=== PATIENT | male | born 1950 | race Hispanic/Latino ===

== ENCOUNTER 2016-08-14 06:47 | Observation (INO) | payer BC ==
[2016-08-14] MEDS ORDERED: Aspirin 325 mg EC Tablets PO STA (07:47)
[2016-08-14 08:16] LABS: BASO # 0.1 K/uL (0.0-0.2); BASO % 1.2 % (0.0-2.0); EOS # 0.1 K/uL (0.0-0.7); HEMATOCRIT 45.1 % (35.0-51.0); LYMPH # 2.2 K/uL (1.0-4.3); LYMPH % 25.7 % (20.0-40.0); MEAN CELL VOLUME 87.3 fL (80.0-94.0); MEAN CORPUSCULAR HEMOGLOBIN 30.1 pg (27.0-31.0); MEAN CORPUSCULAR HGB CONC 34.5 g/dL (33.0-37.0); MEAN PLATELET VOLUME 7.7 fL (7.2-11.7); MONO # 0.8 K/uL (0.0-0.8); MONO % 8.9 % (0.0-10.0); RED CELL DISTRIBUTION WIDTH 14.1 % (11.5-14.5); WHITE BLOOD COUNT 8.7 K/uL (4.8-10.8)
--- NOTE | 2016-08-14 08:21 | C.PDOC ---
History Of Present Illness Patient is a 66-year-old male, PMHx includes Hypertension, GERD and Sciatica, presents to the emergency department with complaints of chest pain. Patient states yesterday at 10 PM he had left-sided chest pain, that was associated with significant diaphoresis at rest. Pain non-radiating, and lasted about five minutes. States he is unable to describe the pain. Patient is a smoker. Denies any leg swelling, arm pain, numbness/weakness, fevers, shortness of breath, dizziness, neck/jaw pain, or any other associated symptoms. No other complaints at this time. Of note, patient is pending appointment with mechanics handyman today ( Dr. Sanchez). PMD Richard Souza MD. Thread [employer] Dr Sanchez Time Seen by Provider: 08/14/16 07:37 Chief Complaint (Nursing): Shortness Of Breath History Per: Patient History/Exam Limitations: no limitations Onset/Duration Of Symptoms: Hrs Current Symptoms Are (Timing): Still Present Past Medical History Reviewed: Historical Data, Nursing Documentation, Vital Signs Vital Signs: Last Vital Signs Temp 98.1 F 08/14/16 15:29 Pulse 51 L 08/14/16 15:29 Resp 20 08/14/16 15:29 BP 134/85 08/14/16 15:29 Pulse Ox 97 08/14/16 15:29 - Medical History PMH: Back Problems, HTN (takes hctz and Telmisartan? dosage) Family History: States: Diabetes, Hypertension - Social History Hx Tobacco Use: Yes Hx Alcohol Use: No Hx Substance Use: No - Immunization History Hx Tetanus Toxoid Vaccination: Yes Hx Influenza Vaccination: Yes Hx Pneumococcal Vaccination: Yes Review Of Systems Except As Marked, All Systems Reviewed And Found Negative. Constitutional: Negative for: Fever, Chills Cardiovascular: Positive for: Chest Pain, Other (Diaphoresis.) Respiratory: Negative for: Shortness of Breath Gastrointestinal: Negative for: Nausea, Vomiting Musculoskeletal: Negative for: Neck Pain, Back Pain Neurological: Negative for: Weakness, Numbness, Headache, Dizziness Physical Exam - Physical Exam Appears: Non-toxic, No Acute Distress Skin: Warm, Dry, No Rash Head: Atraumatic, Normacephalic Eye(s): bilateral: Normal Inspection, PERRL Nose: Normal Oral Mucosa: Moist Lips: Normal Appearing Throat: Normal Neck: Normal ROM Lymphatic: Deferred Chest: Symmetrical Cardiovascular: Rhythm Regular, No Edema, No Murmur Respiratory: Normal Breath Sounds, No Accessory Muscle Use Gastrointestinal/Abdominal: Normal Exam, Bowel Sounds, Soft, No Tenderness Extremity: Normal ROM, No Pedal Edema Neurological/Psych: Oriented x3, Normal Speech ED Course And Treatment - Laboratory Results Result Diagrams: 08/14/16 08:12 08/14/16 08:12 O2 Sat by Pulse Oximetry: 97 (on RA) Medical Decision Making Medical Decision Making: Impression: 66y/o M comes in w/ chest pain and diaphoresis. Will check labs, EKG and CXR. Diff Dx (includes but not limited to) ACS vs Unstable Angina Plan: * EKG * BNP, CK-MB, CMP, CPK, Trop I * CBC, INR * Chest X-Ray * Aspirin * O2 mask * Reassess and Disposition EKG Rate 61bpm Rhythm NSR Interpret No acute ST/T wave changes. Normal [place] Progress: Patient with high risk factors (age, smoker, HTN) and pt with chest pain assoc with significant diaphoresis. Case d/w Dr. Sanchez--recommends hospitalization under the service of Dr. Bansal. Disposition - Disposition Disposition: HOSPITALIZED Disposition Time: 09:35 Condition: FAIR - Clinical Impression Clinical Impression: Chest pain at rest - Scribe Statement The provider has reviewed the documentation as recorded by the Scribe (Fidelia Brooks) All medical record entries made by the Scribe were at my direction and personally dictated by me. I have reviewed the chart and agree that the record accurately reflects my personal performance of the history, physical exam, medical decision making, and the department course for this patient. I have also personally directed, reviewed, and agree with the discharge instructions and disposition. Decision To Admit - Pt Status Changed To: Hospital Disposition Of: Observation - . Bed Request Type: Telemetry Admitting Physician: Eric Bansal Patient Diagnosis: Chest pain at rest
[2016-08-14 08:25] LABS: INR 1.2
[2016-08-14 08:26] LABS: CHLORIDE 103 mmol/L (98-107); SODIUM 139 mmol/L (132-148)
[2016-08-14 08:27] LABS: POTASSIUM 3.2 mmol/L (3.6-5.2)
[2016-08-14 08:29] LABS: ALB/GLOB RATIO 1.2 (1.0-2.1); ALKALINE PHOSPHATASE 101 U/L (38-126); ALT/SGPT 24 U/L (21-72); AST/SGOT 24 U/L (17-59); BILIRUBIN,TOTAL 0.7 mg/dL (0.2-1.3); BLOOD UREA NITROGEN 17 mg/dL (9-20); CARBON DIOXIDE 23 mmol/L (22-30); GFR AFRICAN-AMERICAN > 60; GLUCOSE,RANDOM 128 mg/dL (75-110); TOTAL PROTEIN 7.4 g/dL (6.3-8.3)
[2016-08-14 08:30] LABS: CALCIUM 9.1 mg/dl (8.6-10.4)
[2016-08-14] MEDS ORDERED: Potassium Chloride 20 mEq/15 ml LIQ UD PO STA (09:11)
[2016-08-14] MEDS ORDERED: Potassium Chloride 20 mEq/15 ml LIQ UD ONE (09:16)
--- NOTE | 2016-08-14 09:50 | RAD ---
PROCEDURE: CHEST RADIOGRAPH, 1 VIEW HISTORY: chest pain COMPARISON: None available. FINDINGS: LUNGS: Mild venous congestion. Patchy bibasilar airspace opacities. Biapical pleural thickening with upper lobe granulomatous changes. PLEURA: As above. CARDIOVASCULAR: Normal. OSSEOUS STRUCTURES: Probable calcific tendinopathy of the right proximal humerus. VISUALIZED UPPER ABDOMEN: Normal. OTHER FINDINGS: None. IMPRESSION: Mild venous congestion. Patchy bibasilar airspace opacities. Biapical pleural thickening with upper lobe granulomatous changes.
--- NOTE | 2016-08-14 18:13 | CT ---
PROCEDURE: CT HEAD WITHOUT CONTRAST. HISTORY: dysarthria COMPARISON: None available. TECHNIQUE: Axial computed tomography images were obtained through the head/brain without intravenous contrast. Radiation dose: Total exam DLP = 920.21 mGy-cm. This CT exam was performed using one or more of the following dose reduction techniques: Automated exposure control, adjustment of the mA and/or kV according to patient size, and/or use of iterative reconstruction technique. FINDINGS: HEMORRHAGE: No intracranial hemorrhage. BRAIN: No mass effect or edema. Mild periventricular white matter lucency consistent with chronic microvascular ischemic change. VENTRICLES: Unremarkable. No hydrocephalus. CALVARIUM: Unremarkable. PARANASAL SINUSES: Chronic ethmoid sinusitis. MASTOID AIR CELLS: Unremarkable as visualized. No inflammatory changes. OTHER FINDINGS: None. IMPRESSION: No intracranial mass, hemorrhage or evidence of acute infarct. Mild chronic white matter ischemic change. Chronic ethmoid sinusitis.
--- NOTE | 2016-08-14 18:35 | CT ---
PROCEDURE: CT Chest without contrast HISTORY: nodules COMPARISON: None. TECHNIQUE: Contiguous axial images were obtained through the chest without intravenous contrast enhancement. Sagittal and coronal reconstructions were performed. Radiation dose (DLP): 406.67 mGy-cm. This CT exam was performed using one or more of the following dose reduction techniques: Automated exposure control, adjustment of the mA and/or kV according to patient size, and/or use of iterative reconstruction technique. FINDINGS: LUNGS: No pulmonary infiltrate. Minimal pleural-based linear scar in the left lower lobe, posteriorly. No significant pulmonary mass identified. There is a 2 mm noncalcified right upper lobe nodule on series 3, image 24. No follow-up evaluation is recommended. No other pulmonary mass identified. MEDIASTINUM: Unremarkable thoracic aorta. No aneurysm. Normal sized heart. Main pulmonary artery unremarkable. No vascular congestion. No lymphadenopathy. PLEURA: Curvilinear pleural thickening is seen along the right lateral aspect of a right epicardial fat pad. This has a somewhat nodular appearance in the axial images but this is artifactual. No pleural effusion. BONES: There is mild compression deformity of the T9 vertebra, age indeterminate. There is an old healed fracture of the right 9th rib, posteriorly. UPPER ABDOMEN: Grossly unremarkable. OTHER FINDINGS: None. IMPRESSION: 2 mm right upper lobe pulmonary nodule. No other mass identified. Nonspecific focal curvilinear pleural thickening along the right lateral aspect of a right epicardial fat pad. No other significant abnormality.
--- NOTE | 2016-08-14 19:56 | CARD ---
APPROVED REPORT EKG Measurement Heart [id number] <Conclusion> Normal sinus rhythm Normal ECG
--- NOTE | 2016-08-14 22:56 | CP.PCM.CON ---
History of Present Illness - History of Present Illness History of Present Illness: Patient seen and evaluated Exertional angina and claudication check ECHO, Carotid and Stress test Past Patient History - Past Medical History & Family History Past Medical History?: Yes - Past Social History Smoking Status: Light Smoker < 10 Cigarettes Daily - CARDIAC Hx Hypertension: Yes (takes hctz and Telmisartan? dosage) - PULMONARY Hx Respiratory Disorders: No - NEUROLOGICAL Hx Neurological Disorder: No - HEENT Hx HEENT Problems: No - RENAL Hx Chronic Kidney Disease: No - ENDOCRINE/METABOLIC Hx Endocrine Disorders: No - HEMATOLOGICAL/ONCOLOGICAL Hx Blood Disorders: No - INTEGUMENTARY Hx Dermatological Problems: No - MUSCULOSKELETAL/RHEUMATOLOGICAL Hx Musculoskeletal Disorders: No Hx Falls: No - GASTROINTESTINAL Hx Gastrointestinal Disorders: Yes Hx Gastroesophageal Reflux: Yes (Pantoprazole ? dosage.) - GENITOURINARY/GYNECOLOGICAL Hx Genitourinary Disorders: No - PSYCHIATRIC Hx Substance Use: No - SURGICAL HISTORY Hx Surgeries: Yes Other/Comment: abdominal sx 7yrs ago- Pt cannot recall the type of sx. - ANESTHESIA Hx Anesthesia: Yes Hx Anesthesia Reactions: No Meds Allergies/Adverse Reactions: Allergies Allergy/AdvReac Type Severity Reaction Status Date / Time iodine Allergy Verified 08/14/16 07:02 - Medications Medications: Current Medications Aspirin (Ecotrin) 325 mg PO DAILY [facility] Losartan Potassium (Cozaar) 25 mg PO DAILY [facility] Metoprolol Succinate (Toprol Xl) 25 mg PO DAILY [facility] Nicotine (Nicoderm Cq) 1 patch TD DAILY [facility] Last Admin: 08/14/16 18:34 Dose: 1 patch Results - Vital Signs Recent Vital Signs: Last Vital Signs Temp 98.1 F 08/14/16 15:29 Pulse 51 L 08/14/16 15:29 Resp 20 08/14/16 15:29 BP 134/85 08/14/16 15:29 Pulse Ox 97 08/14/16 15:41 - Labs Result Diagrams: 08/14/16 08:12 08/14/16 08:12 Labs: Laboratory Results - last 24 hr 08/14/16 14:08 Total Creatine Kinase 143 CK-MB (Mass) 1.93 Troponin I, Quant < 0.0120
[2016-08-15] MEDS ORDERED: Aminophylline 25 mg/ml Inj ONE (07:58)
--- NOTE | 2016-08-15 11:28 | CARD ---
APPROVED REPORT EXAM: Two-dimensional and M-mode echocardiogram with Doppler and color Doppler. Other Information Quality : GoodRhythm : NSR INDICATION Chest Pain RISK FACTORS Hypertension M-Mode DIMENSIONS RVDd1.77 (2.1-3.2cm)Left Atrium (MM)3.84 (2.5-4.0cm) IVSd1.15 (0.7-1.1cm)Aortic Root3.28 (2.2-3.7cm) LVDd5.14 (4.0-5.6cm)Aortic Cusp Exc.1.62 (1.5-2.0cm) PWd1.18 (0.7-1.1cm)FS (%) 41 % LVDs3.02 (2.0-3.8cm)LVEF (%)72 (>50%) Mitral Valve MV E Cweznqma88.6cm/sMV A Shrgdnwp69.5cm/sE/A ratio1.1 TDI E/Lateral E'0.0E/Medial E'0.0 Tricuspid Valve TR Peak Nglrvwnm561kf/sTR Peak Gr.47vuJwEIEY68ljIi LEFT VENTRICLE The left ventricle is normal size. There is mild concentric left ventricular hypertrophy. Left ventricle systolic function is normal. The Ejection Fraction is >70%. There is normal LV segmental wall motion. Transmitral Doppler flow pattern is Grade I-abnormal relaxation pattern. There is no ventricular septal defect visualized. RIGHT VENTRICLE The right ventricle is normal size. The right ventricular systolic function is normal. ATRIA The left atrium size is normal. The right atrium size is normal. AORTIC VALVE The aortic valve is mildly sclerotic. The aortic valve is tri-cuspid. No aortic regurgitation is present. There is no aortic valvular stenosis. MITRAL VALVE The mitral valve is normal in structure. There is no evidence of mitral valve prolapse. There is no mitral valve regurgitation noted. TRICUSPID VALVE The tricuspid valve is normal in structure. There is trace tricuspid regurgitation. Right ventricular systolic pressure is estimated at less than 30 mmHg. There is no pulmonary hypertension. PULMONIC VALVE The pulmonic valve is not well visualized. There is trace pulmonic valvular regurgitation. GREAT VESSELS The IVC is normal in size and collapses >50% with inspiration. PERICARDIAL EFFUSION There is no pericardial effusion. <Conclusion> Left ventricle systolic function is normal. The Ejection Fraction is >70%. Transmitral Doppler flow pattern is Grade I-abnormal relaxation pattern.
[2016-08-15] MEDS: Aspirin 325 mg EC Tablets PO SCH (13:26)
[2016-08-15] MEDS: Metoprolol Succinate 25 mg XL Tab PO SCH (13:31)
--- NOTE | 2016-08-15 17:21 | CARD ---
APPROVED REPORT Protocol: PHARMACOLOGICAL STRESS Test Type: LEXISCAN Test Indications: CHEST PAIN,R/O ACS Medications: LIST SCAN Medical History: CHEST PAIN,R/O ACS Target HR: 155 bpm Resting ECG: normal Resting Heart Rate: 54 bpm Resting Blood Pressure: 150/80mmHg submaximum (85%): 132 bpm TEST SUMMARY [id number]/80.0. INFUSIONDOSE 100:[id number]/80.0. [id number]/68.0. PROCEDURE Pharmacologic stress testing was performed using 0.4mg per 5ml of regadenoson given intravenously over 7-10 seconds. POST EXERCISE Reason for Termination: Lexiscan protocol completed Target HR: No Max HR: 53 bpm 59% of Maximum Predicted HR: 155 bpm Exercise duration: 00:30 min:sec, 0 Stage Exercise capacity: 1.0METs Max Blood Pressure: 150/80mmHg Blood Pressure response to exercise: normal resting BP - appropriate response Heart Rate response to exercise: appropriate Chest Pain: No, none Angina index: 0 Arrhythmia: No, none ST Change: No, none Deviation: 0 mm INTERPRETATION Stress EKG Conclusion: Nuclear report to follow EXAM: Myocardial Perfusion REST/STRESS Imaging Protocol The imaging protocol used to acquire images was Rest Tc-99m/stress Tc-99m 1 day Rest Spect myocardial perfusion imaging was performed in supine position 41 minutes following the injection of 13 mCi of Tc-99 Myoview. Gated Stress Spect was performed 40 minutes after intravenous 31.5 mCi Tc-99 Myoview injection. The images were gated to evaluate regional wall motion and calculate ventricular ejection fraction.Images were reconstructed using backfilter projection method in short horizontal and verticle long axis. Spect slices were generated. RESTING DATA EDV98.62xlYI2.70L/min ESV30.00mlMyocardial Hdni130.00g Av. Heart Rate54.00bpm EF69.00% STRESS DATA EDV94.92qpQN9.60L/min ESV28.00mlMyocardial Lylq358.00g EF70.00% Regional WT score at stress:0.00 Regional WM score at stress:0.00 Summed WT score at stress:10.00 Av. Heart Rate55.00bpmSummed WM score at stress:2.00 LV Perf. Quant 17 Seg. SSS0.00 17 Seg. SRS0.00 17 Seg. SDS0.00 Stress Defect Extent (% LAD)0.00Rest Defect Extent (% LAD)0.00Rev. Defect Extent (% LAD)0.00 Stress Defect Extent (% LCX)0.00Rest Defect Extent (% LCX)5.00Rev. Defect Extent (% LCX)0.00 Stress Defect Extent (% RCA)0.00Rest Defect Extent (% RCA)0.00Rev. Defect Extent (% RCA)0.00 Stress Defect Extent (% SUNIL)0.00Rest Defect Extent (% SUNIL)0.90Rev. Defect Extent (% SUNIL)0.00 Other Information Quality:Good IMPRESSION Normal Myocardial Perfusion exercise stress study Left Ventricle LV Function:Left ventricle systolic function is normal. The Ejection Fraction is >55%. Metabolism/Perfusion There are no perfusion/metabolism defects. Conclusion 1. Normal Lexiscan Nuclear stress test
[2016-08-15 17:49] LABS: BASO # 0.1 K/uL (0.0-0.2); BASO % 0.6 % (0.0-2.0); EOS # 0.1 K/uL (0.0-0.7); EOS % 1.6 % (0.0-4.0); HEMATOCRIT 45.2 % (35.0-51.0); LYMPH # 3.1 K/uL (1.0-4.3); MEAN CELL VOLUME 87.6 fL (80.0-94.0); MEAN CORPUSCULAR HEMOGLOBIN 29.9 pg (27.0-31.0); MEAN CORPUSCULAR HGB CONC 34.1 g/dL (33.0-37.0); MONO # 0.7 K/uL (0.0-0.8); NRBC % 0.1 % (0.0-2.0); RED CELL DISTRIBUTION WIDTH 13.5 % (11.5-14.5); WHITE BLOOD COUNT 8.6 K/uL (4.8-10.8)
[2016-08-15 17:57] LABS: CHLORIDE 103 mmol/L (98-107); SODIUM 140 mmol/L (132-148)
[2016-08-15 17:58] LABS: POTASSIUM 3.7 mmol/L (3.6-5.2)
[2016-08-15 18:00] LABS: ALB/GLOB RATIO 1.1 (1.0-2.1); ALKALINE PHOSPHATASE 97 U/L (38-126); AST/SGOT 23 U/L (17-59); BILIRUBIN,TOTAL 0.8 mg/dL (0.2-1.3); BLOOD UREA NITROGEN 13 mg/dL (9-20); CALCIUM 9.1 mg/dl (8.6-10.4); CARBON DIOXIDE 28 mmol/L (22-30); GFR AFRICAN-AMERICAN > 60; GLUCOSE,RANDOM 100 mg/dL (75-110); TOTAL PROTEIN 7.1 g/dL (6.3-8.3)
[2016-08-15 18:01] LABS: ALT/SGPT 25 U/L (21-72)
[2016-08-15 18:49] VITALS: RESP 20
--- NOTE | 2016-08-15 21:38 | CP.PCM.PN ---
Subjective - Date & Time of Evaluation Date of Evaluation: 08/15/16 Time of Evaluation: 18:10 - Subjective Subjective: Patient had several investigations done today Stress test: Normal ECHO: Normal EF DELLA/PVR: Mild PAD Recommend medcal mgt with ASA 81, Statins Objective - Vital Signs/Intake and Output Vital Signs (last 24 hours): Temp Pulse Resp BP Pulse Ox 98.0 F 60 20 145/73 97 08/15/16 15:00 08/15/16 15:00 08/15/16 15:00 08/15/16 15:00 08/15/16 15:00 Intake and Output: 08/15/16 08/16/16 18:59 06:59 Intake Total 240 Balance 240 - Medications Medications: Current Medications Aspirin (Ecotrin) 325 mg PO DAILY [facility] Last Admin: 08/15/16 13:26 Dose: 325 mg Heparin Sodium (Porcine) (Heparin) 5,000 units SC Q12 [facility] Last Admin: 08/15/16 13:27 Dose: 5,000 units Losartan Potassium (Cozaar) 50 mg PO DAILY [facility] Last Admin: 08/15/16 13:48 Dose: 50 mg Metoprolol Succinate (Toprol Xl) 25 mg PO DAILY [facility] Last Admin: 08/15/16 13:31 Dose: Not Given Nicotine (Nicoderm Cq) 1 patch TD DAILY [facility] Last Admin: 08/15/16 13:27 Dose: 1 patch - Labs Labs: 08/15/16 17:37 08/15/16 17:37 PT 13.4 SECONDS (9.7-12.2) H 08/14/16 08:12 INR 1.2 08/14/16 08:12
[2016-08-16] MEDS: Aspirin 325 mg EC Tablets PO SCH (09:49)
[2016-08-16] MEDS: Metoprolol Succinate 25 mg XL Tab PO SCH (09:49)
--- NOTE | 2016-08-16 10:50 | VASCLAB ---
STUDY DESCRIPTION: HISTORY: pvd smoker and pain PRIORS: None. TECHNIQUE: Pulse volume recording waveforms and segmental pressures of bilateral lower extremities at multiple levels were obtained. Ankle Brachial Indices (ABIs) were calculated. Report prepared by MANAV Costa, RVT RIGHT LOWER EXTREMITY: * Brachial artery: Pressure - 154 mmHg. * High thigh: Pressure - 192 mmHg: Ratio - 1.25: PVR waveform - Pulsatile * Low thigh: Pressure - 186 mmHg: Ratio - 1.21 PVR waveform: Pulsatile * Calf: Pressure - 165 mmHg: Ratio - 1.07 PVR waveform: Pulsatile * Posterior tibial Artery: Pressure - 157 mmHg: Ratio - 1.02 PVR waveform: Pulsatile * Dorsalis pedis Artery: Pressure - 173 mmHg: Ratio - 1.12 PVR waveform: Pulsatile * Great toe: Pressure - mmHg: Ratio - PVR waveform: Ankle brachial index (DELLA): 1.12 LEFT LOWER EXTREMITY: * Brachial artery: Pressure - 154 mmHg. * High thigh: Pressure - 185 mmHg: Ratio - 1.20: PVR waveform - Pulsatile * Low thigh: Pressure - 188 mmHg: Ratio - 1.22 PVR waveform: Pulsatile * Calf: Pressure - 161 mmHg: Ratio - 1.05 PVR waveform: Pulsatile * Posterior tibial Artery: Pressure - 167 mmHg: Ratio - 1.08 PVR waveform: Pulsatile * Dorsalis pedis Artery: Pressure - 163 mmHg: Ratio - 1.06 PVR waveform: Pulsatile * Great toe: Pressure - mmHg: Ratio - PVR waveform: Ankle brachial index (DELLA): 1.08 OTHER FINDINGS: Right: Left: IMPRESSION: Right: There was no evidence of hemodynamically significant arterial insufficiency in the right lower extremity. Left: There was no evidence of hemodynamically significant arterial insufficiency in the left lower extremity.
--- NOTE | 2016-08-16 11:04 | VASCLAB ---
PROCEDURE: HISTORY: dysarthria COMPARISON: None available. TECHNIQUE: Grayscale and duplex Doppler evaluation of the cervical carotid and vertebral arteries were performed. The common carotid, carotid bifurcations and cervical Internal Carotid Artery (ICA) and proximal External Carotid Artery (ECA) were evaluated. The vertebral arteries were evaluated for gross patency and flow direction. Report prepared by Luis Sanchez, BS, RVT FINDINGS: RIGHT CAROTID ARTERIES: 1. Common Carotid Artery: No significant focal plaque formation of the right common carotid artery. Maximum Peak Systolic velocity: 70 cm/sec: End-diastolic velocity 10 cm/sec. 2. Carotid Bifurcation: Minimal homogeneous plaque formation. Maximum Peak Systolic velocity: 51 cm/sec: End-diastolic velocity 8 cm/sec. 3. Internal Carotid Artery: Minimal homogeneous plaque formation. 3.1. Proximal Segment: Peak systolic velocity 87 cm/sec: End-diastolic velocity 21 cm/sec - % stenosis 0-15% 3.2. Middle Segment: Peak systolic velocity 75 cm/sec: End-diastolic velocity 18 cm/sec - % stenosis 0-15% 3.3. Distal Segment: Peak systolic velocity 75 cm/sec: End-diastolic velocity 24 cm/sec - % stenosis 0-15% 4. External Carotid Artery: No significant focal plaque formation. Peak systolic velocity 99 cm/sec 5. ICA/CCA Ratio: 1.3 LEFT CAROTID ARTERIES: 1. Common Carotid Artery: No significant focal plaque formation of the left common carotid artery. Mild intimal hyperplasia. Maximum Peak Systolic velocity: 53 cm/sec: End-diastolic velocity 9 cm/sec. 2. Carotid Bifurcation: Minimal homogeneous plaque formation. Maximum Peak Systolic velocity: 42 cm/sec: End-diastolic velocity 7 cm/sec. 3. Internal Carotid Artery: Minimal homogeneous plaque formation. 3.1. Proximal Segment: Peak systolic velocity 88 cm/sec: End-diastolic velocity 24 cm/sec - % stenosis 0-15% 3.2. Middle Segment: Peak systolic velocity 117 cm/sec: End-diastolic velocity 25 cm/sec - % stenosis 0-15% 3.3. Distal Segment: Peak systolic velocity 117 cm/sec: End-diastolic velocity 25 cm/sec - % stenosis 0-15% 4. External Carotid Artery: No significant focal plaque formation. Peak systolic velocity 144 cm/sec 5. ICA/CCA Ratio: 2.2 VERTEBRAL ARTERIES: 1. Right Vertebral Artery: The right vertebral artery flow direction is antegrade. 2. Left Vertebral Artery: The left vertebral artery flow direction is antegrade. OTHER FINDINGS: 1. Right Brachial Blood pressure: 154 mmHg. 2. Left Brachial Blood pressure: 154 mmHg. IMPRESSION: RIGHT: Duplex scan does not suggest hemodynamically significant stenosis of the right extracranial carotid arteries. LEFT: Duplex scan does not suggest hemodynamically significant stenosis of the left extracranial carotid arteries.
[2016-08-16 15:29] VITALS: BP 158/72; PULSE 54; TEMP 97.5; O2SAT 99
--- NOTE | 2016-08-16 16:26 | CP.PCM.PN ---
Subjective - Date & Time of Evaluation Date of Evaluation: 08/16/16 Time of Evaluation: 16:23 - Subjective Subjective: Progress Note- House Physician Patient requested AMA. Patient was admitted for chest pain. Patient understands the risks associated with leaving against medical advice. Risks, to include, [place] , respiratory failure, and . Objective - Vital Signs/Intake and Output Vital Signs (last 24 hours): Temp Pulse Resp BP Pulse Ox 97.5 F L 54 L 20 158/72 H 99 08/16/16 15:26 08/16/16 15:26 08/16/16 15:26 08/16/16 15:26 08/16/16 15:26 Intake and Output: 08/16/16 08/16/16 06:59 18:59 Intake Total 400 480 Balance 400 480 - Medications Medications: Current Medications Aspirin (Ecotrin) 325 mg PO DAILY [facility] Last Admin: 08/16/16 09:49 Dose: 325 mg Heparin Sodium (Porcine) (Heparin) 5,000 units SC Q12 [facility] Last Admin: 08/16/16 09:49 Dose: 5,000 units Losartan Potassium (Cozaar) 50 mg PO DAILY [facility] Last Admin: 08/16/16 09:49 Dose: 50 mg Metoprolol Succinate (Toprol Xl) 25 mg PO DAILY [facility] Last Admin: 08/16/16 09:49 Dose: 25 mg Nicotine (Nicoderm Cq) 1 patch TD DAILY [facility] Last Admin: 08/16/16 10:51 Dose: 1 patch - Labs Labs: 08/15/16 17:37 08/15/16 17:37 PT 13.4 SECONDS (9.7-12.2) H 08/14/16 08:12 INR 1.2 08/14/16 08:12
== END 2016-08-16 19:04 | disposition home or self-care (01) ==
LOC: C.ER 06:47 → C.6T 09:32
PROVIDERS: ADMIT Internal Medicine; ATTEND Internal Medicine
DX: R07.9 Chest pain, unspecified (principal); F17.200 Nicotine dependence, unspecified, uncomplicated; I10 Essential (primary) hypertension; I73.9 Peripheral vascular disease, unspecified; K21.9 Gastro-esophageal reflux disease without esophagitis; M54.30 Sciatica, unspecified side
CPT/HCPCS: 36415; 70450; 71010; 71250; 78452; 80053; 82550; 82553; 83880; 84484; 85025; 85610; 93005; 93017; 93306; 93880; 93923; 99285; A9502; G0378; J0280; J1644; J2785

== ENCOUNTER 2016-11-20 10:30 | Observation (INO) | payer BC ==
[2016-11-20 11:50] LABS: BASO # 0.1 K/uL (0.0-0.2); BASO % 1.1 % (0.0-2.0); EOS # 0.1 K/uL (0.0-0.7); EOS % 1.2 % (0.0-4.0); LYMPH # 2.1 K/uL (1.0-4.3); LYMPH % 28.3 % (20.0-40.0); MEAN CELL VOLUME 87.5 fL (80.0-94.0); MEAN CORPUSCULAR HEMOGLOBIN 31.1 pg (27.0-31.0); MEAN CORPUSCULAR HGB CONC 35.5 g/dL (33.0-37.0); MEAN PLATELET VOLUME 7.7 fL (7.2-11.7); MONO # 0.6 K/uL (0.0-0.8); MONO % 8.5 % (0.0-10.0); RED CELL DISTRIBUTION WIDTH 13.5 % (11.5-14.5); WHITE BLOOD COUNT 7.5 K/uL (4.8-10.8)
[2016-11-20 12:05] LABS: CHLORIDE 97 mmol/L (98-107); POTASSIUM 3.9 mmol/L (3.6-5.2); SODIUM 138 mmol/L (132-148)
[2016-11-20 12:07] LABS: AST/SGOT 20 U/L (17-59); BILIRUBIN,TOTAL 0.7 mg/dL (0.2-1.3); CARBON DIOXIDE 28 mmol/L (22-30); GFR AFRICAN-AMERICAN > 60
[2016-11-20 12:08] LABS: ALB/GLOB RATIO 1.4 (1.0-2.1); ALKALINE PHOSPHATASE 88 U/L (38-126); ALT/SGPT 31 U/L (21-72); BLOOD UREA NITROGEN 11 mg/dL (9-20); CALCIUM 9.3 mg/dl (8.6-10.4); GLUCOSE,RANDOM 87 mg/dL (75-110)
--- NOTE | 2016-11-20 12:32 | C.PDOC ---
History Of Present Illness 66 y/o male presents to ED with complaints of palpitations, sob and chest pain for 5 days worse when he goes up the stairs to apartment. Patient states he walked to hospital from home and was seen at ed for similar symptoms in July. Patient denies fever, cough, congestion or any other complaints at this time. Time Seen by Provider: 11/20/16 10:46 Chief Complaint (Nursing): Palpitations History Per: Patient History/Exam Limitations: no limitations Onset/Duration Of Symptoms: Days Current Symptoms Are (Timing): Still Present Past Medical History Reviewed: Historical Data, Nursing Documentation, Vital Signs Vital Signs: Last Vital Signs Temp 98.2 F 11/22/16 08:06 Pulse 87 11/22/16 08:06 Resp 20 11/22/16 08:06 BP 125/69 11/22/16 08:06 Pulse Ox 100 11/22/16 08:06 - Medical History PMH: Back Problems, HTN (takes hctz and Telmisartan? dosage) Surgical History: No Surg Hx Family History: States: No Known Family Hx, Diabetes, Hypertension - Social History Hx Tobacco Use: Yes Hx Alcohol Use: No Hx Substance Use: No - Immunization History Hx Tetanus Toxoid Vaccination: Yes Hx Influenza Vaccination: Yes (2016) Hx Pneumococcal Vaccination: Yes Review Of Systems Except As Marked, All Systems Reviewed And Found Negative. Constitutional: Negative for: Fever, Chills Cardiovascular: Positive for: Chest Pain, Palpitations Respiratory: Positive for: Shortness of Breath. Negative for: Cough Gastrointestinal: Negative for: Abdominal Pain Skin: Negative for: Rash Neurological: Negative for: Weakness, Numbness Physical Exam - Physical Exam Appears: Non-toxic, No Acute Distress Skin: Normal Color, Warm, Dry, No Rash Head: Atraumatic Oral Mucosa: Moist Neck: Normal ROM Chest: Symmetrical Cardiovascular: Rhythm Regular, No Murmur Respiratory: No Decreased Breath Sounds, No Accessory Muscle Use, No Rales, No Rhonchi, No Wheezing Gastrointestinal/Abdominal: Soft, No Tenderness, No Guarding, No Rebound Extremity: Capillary Refill (<2 seconds) Extremity: Bilateral: Atraumatic Pulses: Left Radial: Normal, Right Radial: Normal Neurological/Psych: Oriented x3 ED Course And Treatment - Laboratory Results Result Diagrams: 11/21/16 06:29 11/20/16 11:44 ECG: Interpreted By Me, Viewed By Me ECG Rhythm: Sinus Bradycardia Interpretation Of ECG: Normal access, Nomral interval, No acute ischemia Rate From EC (bpm) O2 Sat by Pulse Oximetry: 98 (RA) Pulse Ox Interpretation: Normal Disposition - Disposition Disposition: HOSPITALIZED Disposition Time: 12:49 Condition: STABLE - Clinical Impression Clinical Impression: Chest pain - Scribe Statement The provider has reviewed the documentation as recorded by the Deeibjesi Gunn All medical record entries made by the Deeibjesi were at my direction and personally dictated by me. I have reviewed the chart and agree that the record accurately reflects my personal performance of the history, physical exam, medical decision making, and the department course for this patient. I have also personally directed, reviewed, and agree with the discharge instructions and disposition.
[2016-11-20] MEDS ORDERED: Pneumococcal 23-Valent Vaccine IM ONE (15:03)
--- NOTE | 2016-11-20 15:06 | RAD ---
HISTORY: cp sob COMPARISON: Chest x-ray performed 08/14/16 TECHNIQUE: Chest PA and lateral FINDINGS: LUNGS: No focal consolidation. Please note that chest x-ray has limited sensitivity for the detection of pulmonary masses. PLEURA: No significant pleural effusion identified. No definite pneumothorax . CARDIOVASCULAR: Heart size appears within normal limits. OSSEOUS STRUCTURES: Degenerative changes of the spine. Acromioclavicular arthropathy. Partially imaged cervical fusion hardware. VISUALIZED UPPER ABDOMEN: Unremarkable. OTHER FINDINGS: None. IMPRESSION: No focal consolidation, significant pleural effusion, or definite pneumothorax identified.
--- NOTE | 2016-11-20 17:12 | CT ---
PROCEDURE: CT Chest without contrast HISTORY: sob, copd COMPARISON: Comparison is made to the previous study dated 08/14/2016 TECHNIQUE: Contiguous axial images were obtained through the chest without intravenous contrast enhancement. Sagittal and coronal reconstructions were performed. Radiation dose (DLP): 455.42 mGy-cm. This CT exam was performed using one or more of the following dose reduction techniques: Automated exposure control, adjustment of the mA and/or kV according to patient size, and/or use of iterative reconstruction technique. FINDINGS: LUNGS: No evidence of new infiltrate or consolidation in the lungs compared to the previous exam. Mild emphysematous changes predominant in the upper lobes are again noted. Mild central bronchiectasis is also again noted bilaterally. MEDIASTINUM: Unremarkable thoracic aorta. No aneurysm. Normal sized heart. Main pulmonary artery unremarkable. No vascular congestion. No lymphadenopathy. PLEURA: No pleural fluid. No pneumothorax. BONES: No fracture. No destructive lesion. UPPER ABDOMEN: Grossly unremarkable. OTHER FINDINGS: None. IMPRESSION: No evidence of acute pathology in the lungs. No significant interval change since the previous study dated 08/14/2016. Mild emphysematous changes.
--- NOTE | 2016-11-20 20:56 | CP.PCM.CON ---
History of Present Illness - History of Present Illness History of Present Illness: Patient seen and evaluated Dizzy spells and palpitations No syncope LINQ monitor inesrtion in am to evaluate symptomatic arrhythmias Check TSH Past Patient History - Past Medical History & Family History Past Medical History?: Yes - Past Social History Smoking Status: Heavy Smoker > 10 Cigarettes Daily - CARDIAC Hx Hypertension: Yes (takes hctz and Telmisartan? dosage) - PULMONARY Hx Respiratory Disorders: No - NEUROLOGICAL Hx Neurological Disorder: No - HEENT Hx HEENT Problems: No - RENAL Hx Chronic Kidney Disease: No - ENDOCRINE/METABOLIC Hx Endocrine Disorders: No - HEMATOLOGICAL/ONCOLOGICAL Hx Blood Disorders: No - INTEGUMENTARY Hx Dermatological Problems: No - MUSCULOSKELETAL/RHEUMATOLOGICAL Hx Musculoskeletal Disorders: No Hx Falls: No - GASTROINTESTINAL Hx Gastrointestinal Disorders: Yes Hx Gastroesophageal Reflux: Yes - GENITOURINARY/GYNECOLOGICAL Hx Genitourinary Disorders: No - PSYCHIATRIC Hx Substance Use: No - SURGICAL HISTORY Hx Surgeries: Yes Hx Orthopedic Surgery: Yes (R knee - Pt cannot recall type of surgery) Other/Comment: abdominal - Pt cannot recall the type of sx. Neck - Pt cannot recall type of surgery - ANESTHESIA Hx Anesthesia: Yes Hx Anesthesia Reactions: No Meds Allergies/Adverse Reactions: Allergies Allergy/AdvReac Type Severity Reaction Status Date / Time iodine Allergy Verified 11/20/16 10:43 Results - Vital Signs Recent Vital Signs: Last Vital Signs Temp 98.1 F 11/20/16 16:00 Pulse 51 L 11/20/16 16:00 Resp 18 11/20/16 16:00 BP 151/69 H 11/20/16 16:00 Pulse Ox 98 11/20/16 16:00 - Labs Result Diagrams: 11/20/16 11:44 11/20/16 11:44 Labs: Laboratory Results - last 24 hr 11/20/16 11/20/16 11/20/16 11:44 11:44 11:44 WBC 7.5 RBC 5.02 Hgb 15.6 Hct 44.0 MCV 87.5 MCH 31.1 H MCHC 35.5 RDW 13.5 Plt Count 265 MPV 7.7 Neut % (Auto) 60.9 Lymph % (Auto) 28.3 Nye % (Auto) 8.5 Eos % (Auto) 1.2 Baso % (Auto) 1.1 Neut # 4.5 Lymph # 2.1 Nye # 0.6 Eos # 0.1 Baso # 0.1 D-Dimer, Quantitative < 200 Sodium 138 Potassium 3.9 Chloride 97 L Carbon Dioxide 28 Anion Gap 18 BUN 11 Creatinine 1.0 Est GFR ( Amer) > 60 Est GFR (Non-Af Amer) > 60 Random Glucose 87 Calcium 9.3 Total Bilirubin 0.7 AST 20 ALT 31 Alkaline Phosphatase 88 Total Creatine Kinase CK-MB (Mass) Troponin I < 0.0120 Troponin I, Quant NT-Pro-B Natriuret Pep 99.5 Total Protein 7.0 Albumin 4.1 Globulin 2.9 Albumin/Globulin Ratio 1.4 11/20/16 20:03 WBC RBC Hgb Hct MCV MCH MCHC RDW Plt Count MPV Neut % (Auto) Lymph % (Auto) Nye % (Auto) Eos % (Auto) Baso % (Auto) Neut # Lymph # Nye # Eos # Baso # D-Dimer, Quantitative Sodium Potassium Chloride Carbon Dioxide Anion Gap BUN Creatinine Est GFR ( Amer) Est GFR (Non-Af Amer) Random Glucose Calcium Total Bilirubin AST ALT Alkaline Phosphatase Total Creatine Kinase 105 CK-MB (Mass) 1.80 Troponin I Troponin I, Quant < 0.0120 NT-Pro-B Natriuret Pep Total Protein Albumin Globulin Albumin/Globulin Ratio
[2016-11-21 06:44] LABS: HEMATOCRIT 46.1 % (35.0-51.0); MEAN CELL VOLUME 87.3 fL (80.0-94.0); MEAN CORPUSCULAR HEMOGLOBIN 30.5 pg (27.0-31.0); MEAN CORPUSCULAR HGB CONC 34.9 g/dL (33.0-37.0); RED CELL DISTRIBUTION WIDTH 13.7 % (11.5-14.5); WHITE BLOOD COUNT 8.7 K/uL (4.8-10.8)
[2016-11-21 06:47] LABS: INR 1.1
[2016-11-21] MEDS ORDERED: Lidocaine 2% Inj (20ml) ONE ×2 (11:33→12:01)
[2016-11-21] MEDS ORDERED: ceFAZolin 1 gm FROZEN Premix 1 GM/50 ML ML IVPB ONE (11:50)
[2016-11-21] MEDS ORDERED: Midazolam 2 MG/2 ML VIAL ONE (11:50)
--- NOTE | 2016-11-21 14:26 | CARD ---
APPROVED REPORT EKG Measurement Heart [id number] <Conclusion> Sinus bradycardia Otherwise normal ECG
--- NOTE | 2016-11-21 17:36 | CP.PCM.PN ---
Subjective - Date & Time of Evaluation Date of Evaluation: 11/21/16 Time of Evaluation: 17:33 - Subjective Subjective: PT HAS LINQ MONITOR PLACED TODAY BY DR. WARD. TOLERATED PROCEDURE WELL. PT CURRENTLY DENIES ANY C/O. DRESSING NOTED TO LEFT ACW WHEN MONITOR PLACED. PT IS FULLY DRESSED IN HIS HOME CLOTHES AND EAGER FOR D/C. NIGHT ASSISTANT DISCUSSED WITH DR. WARD RECOMMENDATIONS AND HE WANTS PT TO BE MONITORED OVERNIGHT WITH TELE AND THEN CAN BE D/C IN AM IF STABLE. NIGHT ASSISTANT DISCUSSED ALL OF THIS WITH THE PT AND HE IS IN AGREEMENT BUT REQUESTS TO LEAVE BY 8AM 11/22 (HAS [facility] AT [facility] TO ATTEND) . PT TO CONTINUE TAKING HIS TELMISARTAN AT HOME (DOSE NOT NOTED IN [facility]ITECH FROM ER OR FLOOR ADMISSION AND PT DOES NOT RECALL). PT STATES HE HAS ENOUGH OF THE MED AND DOESN'T NEED REFILL. HE WILL F/U WITH DR. CAIN AND SYLVIA IN THEIR OFFICES WITHIN 1 WEEK. NO FURTHER ORDERS. Objective - Vital Signs/Intake and Output Vital Signs (last 24 hours): Temp Pulse Resp BP Pulse Ox 97.8 F 59 L 18 132/66 97 11/21/16 07:20 11/21/16 16:00 11/21/16 07:20 11/21/16 07:20 11/21/16 07:20 Intake and Output: 11/21/16 11/21/16 06:59 18:59 Intake Total 320 Balance 320 - Medications Medications: Current Medications Amlodipine Besylate (Norvasc) 5 mg PO DAILY [facility] Last Admin: 11/21/16 13:21 Dose: 5 mg - Labs Labs: 11/21/16 06:29 11/20/16 11:44 PT 12.8 SECONDS (9.7-12.2) H 11/21/16 06:29 INR 1.1 11/21/16 06:29
[2016-11-21 19:02] VITALS: RESP 20
--- NOTE | 2016-11-21 22:01 | CP.PCM.HP ---
History of Present Illness - History of Present Illness History of Present Illness: Chief complaint: Chest pain History of present illness: 64-year-old male with history of hypertension, reflux disease, sciatica. Patient came to the emergency room with not feeling well. Comparing of shortness of breath. Pain also in the chest, radiating to the left upper extremity, almost 1 day duration. Patient recently hospitalized with similar symptoms. Was also feeling somewhat dizzy. Discomfort in the chest, associated with a palpitation. Patient came to the emergency room, evaluated, and needed hospitalization. Patient is a slower to respond Past medical history: Hypertension GERD and sciatica Allergy no known drug tablets Personal history: He is a smoker, continues to smoke 1 pack per day for many years, denies any alcohol Family history significant for hypertension and diabetes Surgical history none Review of system: Denies any headache, comparing of chest discomfort, shortness supple, and the dizziness. Rest of the review of system unclear On examination: Vital signs stable. Chest good air entry bilaterally regular not so nontender abdomen no pedal edema [employer] alert awake oriented 3 no functional neurological deficit Patient's hospital records. Labs reviewed Chest x-ray reviewed Clinical stable. Mild bradycardia noted. Assessment and recommendation: 66-year-old male with a history of hypertension reflux disease sciatica now admitted to the hospital with chest pain. Underlying CAD cannot be ruled out. Discuss with cardiology today. Patient will be followed up. Possible even monitoring. Dizziness, unclear. Arrhythmia cannot be ruled out. Shortness of breath, likely COPD related. Advise him to quit smoking. We will follow the patient. Present on Admission - Present on Admission Any Indicators Present on Admission: No History of DVT/PE: No History of Uncontrolled Diabetes: No Urinary Catheter: No Decubitus Ulcer Present: No Past Patient History - Past Medical History & Family History Past Medical History?: Yes - Past Social History Smoking Status: Heavy Smoker > 10 Cigarettes Daily - CARDIAC Hx Hypertension: Yes (takes hctz and Telmisartan? dosage) - PULMONARY Hx Respiratory Disorders: No - NEUROLOGICAL Hx Neurological Disorder: No - HEENT Hx HEENT Problems: No - RENAL Hx Chronic Kidney Disease: No - ENDOCRINE/METABOLIC Hx Endocrine Disorders: No - HEMATOLOGICAL/ONCOLOGICAL Hx Blood Disorders: No - INTEGUMENTARY Hx Dermatological Problems: No - MUSCULOSKELETAL/RHEUMATOLOGICAL Hx Musculoskeletal Disorders: No Hx Falls: No - GASTROINTESTINAL Hx Gastrointestinal Disorders: Yes Hx Gastroesophageal Reflux: Yes - GENITOURINARY/GYNECOLOGICAL Hx Genitourinary Disorders: No - PSYCHIATRIC Hx Substance Use: No - SURGICAL HISTORY Hx Surgeries: Yes Hx Orthopedic Surgery: Yes (R knee - Pt cannot recall type of surgery) Other/Comment: abdominal - Pt cannot recall the type of sx. Neck - Pt cannot recall type of surgery - ANESTHESIA Hx Anesthesia: Yes Hx Anesthesia Reactions: No Meds Allergies/Adverse Reactions: Allergies Allergy/AdvReac Type Severity Reaction Status Date / Time iodine Allergy Verified 11/20/16 10:43 Results - Vital Signs Recent Vital Signs: Last Vital Signs Temp 97.5 F L 11/21/16 15:40 Pulse 59 L 11/21/16 16:00 Resp 20 11/21/16 15:40 BP 143/65 11/21/16 15:40 Pulse Ox 97 11/21/16 15:40 - Labs Result Diagrams: 11/21/16 06:29 11/20/16 11:44 Labs: Laboratory Results - last 24 hr 11/21/16 11/21/16 11/21/16 06:29 06:29 06:29 WBC 8.7 RBC 5.28 Hgb 16.1 Hct 46.1 MCV 87.3 MCH 30.5 MCHC 34.9 RDW 13.7 Plt Count 246 MPV 8.0 PT 12.8 H INR 1.1 Total Creatine Kinase CK-MB (Mass) Troponin I, Quant TSH 3rd Generation 1.92 11/21/16 11/21/16 06:29 16:36 WBC RBC Hgb Hct MCV MCH MCHC RDW Plt Count MPV PT INR Total Creatine Kinase 124 156 CK-MB (Mass) 1.61 2.09 Troponin I, Quant < 0.0120 < 0.0120 TSH 3rd Generation
--- NOTE | 2016-11-21 22:01 | CP.PCM.PN ---
Subjective - Date & Time of Evaluation Date of Evaluation: 11/21/16 Time of Evaluation: 22:01 - Subjective Subjective: Patient underwent to even monitoring recording. Loop recorder done Clinical stable. He will be discharged home tomorrow Objective - Vital Signs/Intake and Output Vital Signs (last 24 hours): Temp Pulse Resp BP Pulse Ox 97.5 F L 59 L 20 143/65 97 11/21/16 15:40 11/21/16 16:00 11/21/16 15:40 11/21/16 15:40 11/21/16 15:40 - Medications Medications: Current Medications Amlodipine Besylate (Norvasc) 5 mg PO DAILY [facility] Last Admin: 11/21/16 13:21 Dose: 5 mg - Labs Labs: 11/21/16 06:29 11/20/16 11:44 PT 12.8 SECONDS (9.7-12.2) H 11/21/16 06:29 INR 1.1 11/21/16 06:29
--- NOTE | 2016-11-21 22:54 | CP.PCM.PN ---
Subjective - Date & Time of Evaluation Date of Evaluation: 11/21/16 Time of Evaluation: 13:00 - Subjective Subjective: Patient s/p LINQ monitor insertion Uneventful Symptomatic bradycardia Objective - Vital Signs/Intake and Output Vital Signs (last 24 hours): Temp Pulse Resp BP Pulse Ox 97.5 F L 59 L 20 143/65 97 11/21/16 15:40 11/21/16 16:00 11/21/16 15:40 11/21/16 15:40 11/21/16 15:40 - Medications Medications: Current Medications Amlodipine Besylate (Norvasc) 5 mg PO DAILY [facility] Last Admin: 11/21/16 13:21 Dose: 5 mg - Labs Labs: 11/21/16 06:29 11/20/16 11:44 PT 12.8 SECONDS (9.7-12.2) H 11/21/16 06:29 INR 1.1 11/21/16 06:29
[2016-11-22 08:07] VITALS: BP 125/69; PULSE 87; TEMP 98.2
[2016-11-23 07:49] VITALS: O2SAT 98
--- NOTE | 2016-11-24 14:49 | CP.PCM.DIS ---
Provider - Provider Date of Admission: 11/20/16 12:49 Attending physician: Eric Bansal MD Time Spent in preparation of Discharge (in minutes): 45 Hospital Course - Lab Results Lab Results: Most Recent Lab Values WBC 8.7 K/uL (4.8-10.8) 11/21/16 06:29 RBC 5.28 Mil/uL (4.40-5.90) 11/21/16 06:29 Hgb 16.1 g/dL (12.0-18.0) 11/21/16 06: Hct 46.1 % (35.0-51.0) 11/21/16 06: MCV 87.3 fL (80.0-94.0) 11/21/16 06: MCH 30.5 pg (27.0-31.0) 11/21/16 06: MCHC 34.9 g/dL (33.0-37.0) 11/21/16 06: RDW 13.7 % (11.5-14.5) 11/21/16 06:29 Plt Count 246 K/uL (130-400) 11/21/16 06:29 MPV 8.0 fL (7.2-11.7) 11/21/16 06: Neut % (Auto) 60.9 % (50.0-75.0) 11/20/16 11:44 Lymph % (Auto) 28.3 % (20.0-40.0) 11/20/16 11:44 Lassen % (Auto) 8.5 % (0.0-10.0) 11/20/16 11:44 Eos % (Auto) 1.2 % (0.0-4.0) 11/20/16 11:44 Baso % (Auto) 1.1 % (0.0-2.0) 11/20/16 11:44 Neut # 4.5 K/uL (1.8-7.0) 11/20/16 11:44 Lymph # 2.1 K/uL (1.0-4.3) 11/20/16 11:44 Lassen # 0.6 K/uL (0.0-0.8) 11/20/16 11:44 Eos # 0.1 K/uL (0.0-0.7) 11/20/16 11:44 Baso # 0.1 K/uL (0.0-0.2) 11/20/16 11:44 PT 12.8 SECONDS (9.7-12.2) H 11/21/16 06:29 INR 1.1 11/21/16 06:29 D-Dimer, Quantitative < 200 ng/mlDDU (0-243) 11/20/16 11:44 Sodium 138 mmol/L (132-148) 11/20/16 11:44 Potassium 3.9 mmol/L (3.6-5.2) 11/20/16 11:44 Chloride 97 mmol/L (98-107) L 11/20/16 11:44 Carbon Dioxide 28 mmol/L (22-30) 11/20/16 11:44 Anion Gap 18 (10-20) 11/20/16 11:44 BUN 11 mg/dL (9-20) 11/20/16 11:44 Creatinine 1.0 MG/DL (0.8-1.5) 11/20/16 11:44 Est GFR ( Amer) > 60 11/20/16 11:44 Est GFR (Non-Af Amer) > 60 11/20/16 11:44 Random Glucose 87 mg/dL (75-110) 11/20/16 11:44 Calcium 9.3 mg/dl (8.6-10.4) 11/20/16 11:44 Total Bilirubin 0.7 mg/dL (0.2-1.3) 11/20/16 11:44 AST 20 U/L (17-59) 11/20/16 11:44 ALT 31 U/L (21-72) 11/20/16 11:44 Alkaline Phosphatase 88 U/L (38-126) 11/20/16 11:44 Total Creatine Kinase 156 U/L (55-170) 11/21/16 16:36 CK-MB (Mass) 2.09 ng/mL (0.0-3.38) 11/21/16 16:36 Troponin I < 0.0120 ng/mL (0.00-0.120) 11/20/16 11:44 Troponin I, Quant < 0.0120 ng/mL (0.00-0.120) 11/21/16 16:36 NT-Pro-B Natriuret Pep 99.5 pg/mL (0-900) 11/20/16 11:44 Total Protein 7.0 g/dL (6.3-8.3) 11/20/16 11:44 Albumin 4.1 g/dL (3.5-5.0) 11/20/16 11:44 Globulin 2.9 gm/dL (2.2-3.9) 11/20/16 11:44 Albumin/Globulin Ratio 1.4 (1.0-2.1) 11/20/16 11:44 TSH 3rd Generation 1.92 mIU/L (0.46-4.68) 11/21/16 06:29 - Hospital Course Hospital Course: Chief complaint: Chest pain History of present illness: 64-year-old male with history of hypertension, reflux disease, sciatica. Patient came to the emergency room with not feeling well. Comparing of shortness of breath. Pain also in the chest, radiating to the left upper extremity, almost 1 day duration. Patient recently hospitalized with similar symptoms. Was also feeling somewhat dizzy. Discomfort in the chest, associated with a palpitation. Patient came to the emergency room, evaluated, and needed hospitalization. Patient is a slower to respond Past medical history: Hypertension GERD and sciatica Allergy no known drug tablets Personal history: He is a smoker, continues to smoke 1 pack per day for many years, denies any alcohol Family history significant for hypertension and diabetes Surgical history none Review of system: Denies any headache, comparing of chest discomfort, shortness supple, and the dizziness. Rest of the review of system unclear On examination: Vital signs stable. Chest good air entry bilaterally regular not so nontender abdomen no pedal edema [employer] alert awake oriented 3 no functional neurological deficit Patient's hospital records. Labs reviewed Chest x-ray reviewed Clinical stable. Mild bradycardia noted. Assessment and recommendation: 66-year-old male with a history of hypertension reflux disease sciatica now admitted to the hospital with chest pain. Underlying CAD cannot be ruled out. Discuss with cardiology today. Patient will be followed up. Possible even monitoring. Dizziness, unclear. Arrhythmia cannot be ruled out. Shortness of breath, likely COPD related. Advise him to quit smoking. We will follow the patient. Patient did not wait for discharge. He got discharged by himself today. But later after 2 hours patient returned to the hospital, and he brought the loop recorder apparatus. I spoke to the cardiology. Patient is currently doing well. He will follow up as an outpatient. We'll continue to monitor the loop recorder. At least once in 2 weeks. Continue to monitor. Follow-up as an outpatient Discharge Plan - Follow Up Plan Condition: STABLE Disposition: ELOPED FROM NURSING UNIT Instructions: Chest Pain (DC), Heart Healthy Diet (DC), Hypertension (DC), Cardiac Loop Recorder Insertion (DC) Additional Instructions: FOLLOW UP WITH DR. WARD IN THE OFFICE IN 1 WEEK---CALL TO MAKE YOUR APPT. FOLLOW UP WITH DR. BANSAL IN THE OFFICE WITHIN 1 WEEK---CALL TO MAKE YOUR APPT. NOTIFY YOUR DOCTOR IF THE HEART MONITOR SITE BECOMES RED, SWOLLEN AND HAS PUS. CONTINUE TAKING YOUR BLOOD PRESSURE PILL (TELMISARTAN) AT HOME USUAL. IF YOU HAVE ANY FURTHER QUESTIONS OR CONCERNS, CONTACT DR. BANSAL OR DR. WARD 'S OFFICE. Referrals: Bereket Ward MD [Staff Provider] - Eric Bansal MD [Staff Provider] -
--- NOTE | 2016-12-04 06:45 | CARDCATH ---
PROCEDURE DATE: 11/21/2016 PROCEDURE: LINQ monitor insertion. CLINICAL INDICATIONS: 1. Syncope. 2. Symptomatic bradycardia. REFERRING PHYSICIAN: Eric Bansal MD. PERFORMING PHYSICIAN: Bereket Sanchez MD. DESCRIPTION OF PROCEDURE: After informed consent, the patient was prepped and draped in the usual sterile fashion. A 2% lidocaine was given in the forth left fourth intercostal space. Using the caliper provided in the LINQ monitor kit, a pocket was made in the fourth intercostal space. A LINQ monitor inserted safely into the fourth intercostal space pocket. The procedure was uneventful. Postprocedure hemostasis accomplished with hand pressure. Postprocedure device was checked for proper monitoring. CONCLUSION: Successful LINQ monitor insertion in the left fourth intercostal space. The patient will follow up with my office for further event monitoring. Bereket Sanchez MD
== END 2016-11-22 08:30 | disposition left against medical advice (07) ==
LOC: C.ER 10:30 → C.9E 12:49 → C.6T 13:17
PROVIDERS: ADMIT Internal Medicine; ATTEND Internal Medicine
DX: I25.10 Atherosclerotic heart disease of native coronary artery without angina pectoris (principal); J44.9 Chronic obstructive pulmonary disease, unspecified; I10 Essential (primary) hypertension; F17.210 Nicotine dependence, cigarettes, uncomplicated
CPT/HCPCS: 33282; 36415; 71020; 71250; 80053; 83880; 84443; 84484; 85025; 85027; 85378; 85610; 93005; 94770; 99285; C1764; G0378; J0690; J2250; J3010

== ENCOUNTER 2017-03-18 10:18 | Observation (INO) | payer BC, MEDICARE ==
[2017-03-18 10:34] VITALS: BMI 29.7
--- NOTE | 2017-03-18 10:35 | C.PDOC ---
History Of Present Illness 67 year old male presents to the ED with a recurrent CP, dyspnea on exertion, SOB that occurred prior to arrival which has now been resolved. Patient states the chest pain started while he was walking, and improved with some rest. Patient was admitted on 10/2016 for similar complaints status post LINQ monitor pending output and cardio follow up, patient reports this is his first CP since admission. Patient is a poor historian. 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 PS ONSET WHILE WALKING. IMPROVED W REST. ADMITTED 10/2016 FOR SAME S/P LINQ MONITOR, PENDING OUTPUT CARDIO FU. PS FIRST CP SINCE ADMISSION. EXAM NEG Time Seen by Provider: 03/18/17 10:22 History Per: Patient History/Exam Limitations: no limitations Onset/Duration Of Symptoms: Sudden Onset Current Symptoms Are (Timing): Gone Quality: "Pain" Modifying Factors: None Exacerbating Factors: None Alleviating Factors: Rest Recent travel outside of the [place]: No Additional History Per: Patient Past Medical History Vital Signs: Last Vital Signs Temp 97.8 F 03/18/17 10:34 Pulse 57 L 03/18/17 10:34 Resp 16 03/18/17 10:34 BP 173/69 H 03/18/17 10:34 Pulse Ox 97 03/18/17 11:26 - Medical History PMH: Back Problems, HTN (takes hctz and Telmisartan? dosage) Denies: Chronic Kidney Disease Surgical History: No Surg Hx Family History: States: Diabetes, Hypertension - Social History Hx Tobacco Use: Yes Hx Alcohol Use: No Hx Substance Use: No - Immunization History Hx Tetanus Toxoid Vaccination: Yes Hx Influenza Vaccination: Yes (2016) Hx Pneumococcal Vaccination: Yes Review Of Systems Constitutional: Negative for: Fever, Chills Cardiovascular: Positive for: Chest Pain. Negative for: Palpitations Respiratory: Positive for: Shortness of Breath, SOB with Excertion. Negative for: Cough Gastrointestinal: Negative for: Nausea, Vomiting, Abdominal Pain Musculoskeletal: Negative for: Neck Pain Skin: Negative for: Rash Neurological: Negative for: Weakness, Numbness, Headache, Dizziness Physical Exam - Physical Exam Appears: Non-toxic, No Acute Distress Skin: Normal Color, Warm, Dry Head: Atraumatic, Normacephalic Eye(s): bilateral: Normal Inspection Nose: No Discharge, No Deformity Oral Mucosa: Moist Neck: Normal ROM, Supple Chest: Symmetrical Cardiovascular: Rhythm Regular, No Murmur Respiratory: Normal Breath Sounds, No Rales, No Rhonchi, No Wheezing Gastrointestinal/Abdominal: Soft, No Tenderness, No Guarding, No Rebound Extremity: Normal ROM, No Pedal Edema, No Calf Tenderness, No Deformity, No Swelling Neurological/Psych: Oriented x3, Normal Speech, Normal Cognition Gait: Steady ED Course And Treatment - Laboratory Results Result Diagrams: 03/18/17 10:58 03/18/17 10:58 ECG: Interpreted By Me ECG Rhythm: Sinus Bradycardia Rate From EC O2 Sat by Pulse Oximetry: 97 (On RA) Pulse Ox Interpretation: Normal - Radiology CXR: Viewed By Me, Read By Radiologist CXR Interpretation: Yes: Other (No active disease.). No: No Acute Disease, Infiltrates Progress - Re-Evaluation Re-evaluation Note: 03/18/17 10:47 D/W DR WARD. ADVISES ADMISSION, WILL CONSULT. NO PRIOR CATH OR STRESS TEST. REQUESTS ADMISSION TO DR ALEMAN 03/18/17 11:11 D/W DR ALEMAN WILL ADMIT 03/18/17 12:03 NO RECUR CP SINCE PRIOR EVAL. APPEARS COMFORTABLE NAD - Data Reviewed Data Reviewed: Lab, Diagnostic imaging, EKG, Old records Medical Decision Making Medical Decision Making: Impression: recurrent CP Plan: * EKG * Labs * CXR * Aspirin 324 mg PO Disposition Counseled Patient/Family Regarding: Studies Performed, Diagnosis, Need For Followup - Disposition Disposition: HOSPITALIZED Disposition Time: 12:03 Condition: STABLE - POA Present On Arrival: None - Clinical Impression Clinical Impression: Chest pain - Scribe Statement The provider has reviewed the documentation as recorded by the Scribe Donald Cordova All medical record entries made by the Scribe were at my direction and personally dictated by me. I have reviewed the chart and agree that the record accurately reflects my personal performance of the history, physical exam, medical decision making, and the department course for this patient. I have also personally directed, reviewed, and agree with the discharge instructions and disposition. Decision To Admit - Pt Status Changed To: Hospital Disposition Of: Observation - . Bed Request Type: Telemetry Admitting Physician: Eric Aleman Patient Diagnosis: Chest pain
--- NOTE | 2017-03-18 10:52 | RAD ---
PROCEDURE: CHEST RADIOGRAPH, 1 VIEW HISTORY: chest pain COMPARISON: CT scan of the chest dated 11/20/2016. FINDINGS: LUNGS: Clear. PLEURA: No pneumothorax or pleural fluid seen. CARDIOVASCULAR: Normal. OSSEOUS STRUCTURES: Anterior cervical fixation plate redemonstrated. Unchanged. VISUALIZED UPPER ABDOMEN: Normal. OTHER FINDINGS: Cardiac loop recorder. IMPRESSION: No active disease.
[2017-03-18 11:05] LABS: BASO # 0.1 K/uL (0.0-0.2); BASO % 1.3 % (0.0-2.0); EOS # 0.1 K/uL (0.0-0.7); EOS % 1.6 % (0.0-4.0); HEMOGLOBIN 15.8 g/dL (12.0-18.0); LYMPH # 2.1 K/uL (1.0-4.3); LYMPH % 27.2 % (20.0-40.0); MEAN CELL VOLUME 88.8 fL (80.0-94.0); MEAN CORPUSCULAR HEMOGLOBIN 30.7 pg (27.0-31.0); MEAN CORPUSCULAR HGB CONC 34.6 g/dL (33.0-37.0); MEAN PLATELET VOLUME 7.4 fL (7.2-11.7); MONO # 0.7 K/uL (0.0-0.8); MONO % 9.3 % (0.0-10.0); NEUT # 4.7 K/uL (1.8-7.0); NEUT % 60.6 % (50.0-75.0); RBC 5.15 Mil/uL (4.40-5.90); RED CELL DISTRIBUTION WIDTH 13.4 % (11.5-14.5); WHITE BLOOD COUNT 7.7 K/uL (4.8-10.8)
[2017-03-18 11:09] LABS: INR 1.2
[2017-03-18 11:19] LABS: ALB/GLOB RATIO 1.3 (1.0-2.1); ALT/SGPT 30 U/L (21-72); AST/SGOT 33 U/L (17-59); BLOOD UREA NITROGEN 13 mg/dL (9-20); CALCIUM 9.3 mg/dl (8.6-10.4); GFR AFRICAN-AMERICAN > 60; GFR NON-AFRICAN AMERICAN > 60
[2017-03-18 11:31] LABS: B-TYPE NATRIURETIC PEPTIDE 108 pg/mL (0-900)
[2017-03-18 19:24] LABS: CK-MB 1.32 ng/mL (0.0-3.38); TROPONIN I 0.02 ng/mL (0.00-0.120)
[2017-03-18 21:16] VITALS: RESP 20
--- NOTE | 2017-03-18 22:09 | CP.PCM.CON ---
Past Patient History - Past Medical History & Family History Past Medical History?: Yes - Past Social History Smoking Status: Heavy Smoker > 10 Cigarettes Daily - CARDIAC Hx Hypertension: Yes (takes hctz and Telmisartan? dosage) - PULMONARY Hx Respiratory Disorders: No - NEUROLOGICAL Hx Dementia: Yes - HEENT Hx HEENT Problems: No - RENAL Hx Chronic Kidney Disease: No - ENDOCRINE/METABOLIC Hx Endocrine Disorders: No - HEMATOLOGICAL/ONCOLOGICAL Hx Blood Disorders: No - INTEGUMENTARY Hx Dermatological Problems: No - MUSCULOSKELETAL/RHEUMATOLOGICAL Hx Musculoskeletal Disorders: No Hx Falls: No - GASTROINTESTINAL Hx Gastroesophageal Reflux: Yes - GENITOURINARY/GYNECOLOGICAL Hx Genitourinary Disorders: No - PSYCHIATRIC Hx Substance Use: No - SURGICAL HISTORY Hx Surgeries: Yes Hx Orthopedic Surgery: Yes (R knee - Pt cannot recall type of surgery) Other/Comment: abdominal - Pt cannot recall the type of sx. Neck - Pt cannot recall type of surgery - ANESTHESIA Hx Anesthesia: Yes Hx Anesthesia Reactions: No Meds Allergies/Adverse Reactions: Allergies Allergy/AdvReac Type Severity Reaction Status Date / Time iodine Allergy Verified 11/20/16 10:43 - Medications Medications: Current Medications Aspirin (Aspirin Chewable) 81 mg PO DAILY [facility] Heparin Sodium (Porcine) (Heparin) 5,000 units SC Q12 [facility] Losartan Potassium (Cozaar) 25 mg PO DAILY [facility] Results - Vital Signs Recent Vital Signs: Last Vital Signs Temp 98.1 F 03/18/17 19:30 Pulse 52 L 03/18/17 19:30 Resp 20 03/18/17 19:30 BP 170/71 H 03/18/17 19:30 Pulse Ox 98 03/18/17 19:30 - Labs Result Diagrams: 03/18/17 10:58 03/18/17 10:58 Labs: Laboratory Results - last 24 hr 03/18/17 03/18/17 03/18/17 10:58 10:58 10:58 WBC 7.7 RBC 5.15 Hgb 15.8 Hct 45.7 MCV 88.8 MCH 30.7 MCHC 34.6 RDW 13.4 Plt Count 281 MPV 7.4 Neut % (Auto) 60.6 Lymph % (Auto) 27.2 [place] % (Auto) 9.3 Eos % (Auto) 1.6 Baso % (Auto) 1.3 Neut # 4.7 Lymph # 2.1 [place] # 0.7 Eos # 0.1 Baso # 0.1 PT 13.0 H INR 1.2 APTT 33 Sodium 136 Potassium 4.1 Chloride 100 Carbon Dioxide 30 Anion Gap 10 BUN 13 Creatinine 1.0 Est GFR ( Amer) > 60 Est GFR (Non-Af Amer) > 60 Random Glucose 110 Calcium 9.3 Total Bilirubin 0.7 AST 33 ALT 30 Alkaline Phosphatase 83 Total Creatine Kinase CK-MB (Mass) Troponin I < 0.0120 NT-Pro-B Natriuret Pep 108 Total Protein 7.2 Albumin 4.0 Globulin 3.2 Albumin/Globulin Ratio 1.3 03/18/17 18:47 WBC RBC Hgb Hct MCV MCH MCHC RDW Plt Count MPV Neut % (Auto) Lymph % (Auto) [place] % (Auto) Eos % (Auto) Baso % (Auto) Neut # Lymph # [place] # Eos # Baso # PT INR APTT Sodium Potassium Chloride Carbon Dioxide Anion Gap BUN Creatinine Est GFR ( Amer) Est GFR (Non-Af Amer) Random Glucose Calcium Total Bilirubin AST ALT Alkaline Phosphatase Total Creatine Kinase 103 CK-MB (Mass) 1.32 Troponin I 0.0200 NT-Pro-B Natriuret Pep Total Protein Albumin Globulin Albumin/Globulin Ratio
--- NOTE | 2017-03-19 00:34 | CP.PCM.HP ---
History of Present Illness - History of Present Illness History of Present Illness: Chief complaint: Chest pain History of present illness: 64-year-old male with history of hypertension, reflux disease, sciatica. Patient came to the emergency room with not feeling well. Comparing of shortness of breath. Pain also in the chest, radiating to the left upper extremity, almost 1 day duration. Patient recently hospitalized with similar symptoms. during the last admission pt got loop recorder but pt noncompliance Patient is a slower to respond Past medical history: Hypertension GERD and sciatica Allergy no known drug tablets Personal history: He is a smoker, continues to smoke 1 pack per day for many years, denies any alcohol Family history significant for hypertension and diabetes Surgical history none Review of system: Denies any headache, comparing of chest discomfort, shortness supple, and the dizziness. Rest of the review of system unclear On examination: Vital signs stable. 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 Labs reviewed Chest x-ray reviewed Clinical stable. Mild bradycardia noted. Assessment and recommendation: 66-year-old male with a history of hypertension reflux disease sciatica now admitted to the hospital with chest pain. Underlying CAD cannot be ruled out. Discuss with cardiology today. Patient will be followed up. cardiology eval Shortness of breath, likely COPD related. Advise him to quit smoking. We will follow the patient. Present on Admission - Present on Admission Any Indicators Present on Admission: No History of DVT/PE: No History of Uncontrolled Diabetes: No Urinary Catheter: No Decubitus Ulcer Present: No Past Patient History - Past Medical History & Family History Past Medical History?: Yes - Past Social History Smoking Status: Heavy Smoker > 10 Cigarettes Daily - CARDIAC Hx Hypertension: Yes (takes hctz and Telmisartan? dosage) - PULMONARY Hx Respiratory Disorders: No - NEUROLOGICAL Hx Dementia: Yes - HEENT Hx HEENT Problems: No - RENAL Hx Chronic Kidney Disease: No - ENDOCRINE/METABOLIC Hx Endocrine Disorders: No - HEMATOLOGICAL/ONCOLOGICAL Hx Blood Disorders: No - INTEGUMENTARY Hx Dermatological Problems: No - MUSCULOSKELETAL/RHEUMATOLOGICAL Hx Musculoskeletal Disorders: No Hx Falls: No - GASTROINTESTINAL Hx Gastroesophageal Reflux: Yes - GENITOURINARY/GYNECOLOGICAL Hx Genitourinary Disorders: No - PSYCHIATRIC Hx Substance Use: No - SURGICAL HISTORY Hx Surgeries: Yes Hx Orthopedic Surgery: Yes (R knee - Pt cannot recall type of surgery) Other/Comment: abdominal - Pt cannot recall the type of sx. Neck - Pt cannot recall type of surgery - ANESTHESIA Hx Anesthesia: Yes Hx Anesthesia Reactions: No Meds Allergies/Adverse Reactions: Allergies Allergy/AdvReac Type Severity Reaction Status Date / Time iodine Allergy Verified 11/20/16 10:43 Results - Vital Signs Recent Vital Signs: Last Vital Signs Temp 98.1 F 03/18/17 19:30 Pulse 52 L 03/18/17 19:30 Resp 20 03/18/17 19:30 BP 170/71 H 03/18/17 19:30 Pulse Ox 98 03/18/17 19:30 - Labs Result Diagrams: 03/18/17 10:58 03/18/17 10:58 Labs: Laboratory Results - last 24 hr 03/18/17 03/18/17 03/18/17 10:58 10:58 10:58 WBC 7.7 RBC 5.15 Hgb 15.8 Hct 45.7 MCV 88.8 MCH 30.7 MCHC 34.6 RDW 13.4 Plt Count 281 MPV 7.4 Neut % (Auto) 60.6 Lymph % (Auto) 27.2 [place] % (Auto) 9.3 Eos % (Auto) 1.6 Baso % (Auto) 1.3 Neut # 4.7 Lymph # 2.1 [place] # 0.7 Eos # 0.1 Baso # 0.1 PT 13.0 H INR 1.2 APTT 33 Sodium 136 Potassium 4.1 Chloride 100 Carbon Dioxide 30 Anion Gap 10 BUN 13 Creatinine 1.0 Est GFR ( Amer) > 60 Est GFR (Non-Af Amer) > 60 Random Glucose 110 Calcium 9.3 Total Bilirubin 0.7 AST 33 ALT 30 Alkaline Phosphatase 83 Total Creatine Kinase CK-MB (Mass) Troponin I < 0.0120 NT-Pro-B Natriuret Pep 108 Total Protein 7.2 Albumin 4.0 Globulin 3.2 Albumin/Globulin Ratio 1.3 03/18/17 18:47 WBC RBC Hgb Hct MCV MCH MCHC RDW Plt Count MPV Neut % (Auto) Lymph % (Auto) [place] % (Auto) Eos % (Auto) Baso % (Auto) Neut # Lymph # [place] # Eos # Baso # PT INR APTT Sodium Potassium Chloride Carbon Dioxide Anion Gap BUN Creatinine Est GFR ( Amer) Est GFR (Non-Af Amer) Random Glucose Calcium Total Bilirubin AST ALT Alkaline Phosphatase Total Creatine Kinase 103 CK-MB (Mass) 1.32 Troponin I 0.0200 NT-Pro-B Natriuret Pep Total Protein Albumin Globulin Albumin/Globulin Ratio
[2017-03-19 02:00] LABS: CK-MB 1.28 ng/mL (0.0-3.38)
[2017-03-19 08:15] VITALS: BP 161/82; PULSE 56; TEMP 97.6; O2SAT 97
--- NOTE | 2017-03-19 12:24 | CT ---
PROCEDURE: CT chest dated 03/19/2017 HISTORY: SOB. COMPARISON: Comparison made with CT scan chest dated 11/12/2016 TECHNIQUE: Contiguous helical/transaxial images were obtained through the chest without intravenous contrast enhancement. Sagittal and coronal reconstructions were performed. Radiation dose (DLP): 557.67 mGy-cm. This CT exam was performed using one or more of the following dose reduction techniques: Automated exposure control, adjustment of the mA and/or kV according to patient size, and/or use of iterative reconstruction technique. FINDINGS: LUNGS: Minor biapical pleural thickening and parenchymal scarring changes. Additionally, there is a localized area of minor pleural based and parenchymal scarring left posterior upper lung zone. Mild passive atelectasis both posterior lower lung zones. No focal consolidation or effusion. No evidence of pneumothorax. . MEDIASTINUM: Heart size is within range normal. No significant pericardial effusion. Ascending thoracic aorta measures approximately 3.5 cm and descending thoracic aorta measures approximate 2.73 cm. Pulmonary trunk measures approximately 2.5 cm. Central airways are midline and patent. No large central endoluminal lesions are identified. There may be a tiny hiatal hernia. PLEURA: No pleural fluid. No pneumothorax. . BONES: Minor multilevel degenerative spondylosis of the lower thoracic and lumbar spine. Chronic anterior wedge deformities of a few mid to lower thoracic segments. There is small cylindrical radiopaque - metallic presumed systems software manager device within subcutaneous tissues left anterior chest wall. UPPER ABDOMEN: There is a small approximately 2.4 x 2.4 cm rounded low-attenuation focus posterior aspect mid to lower pole left kidney consistent with cyst. Changes of cholecystectomy. OTHER FINDINGS: None. IMPRESSION: No acute consolidation. No effusion or pneumothorax. Minor biapical pleural thickening and parenchymal scarring changes. See above discussion for additional details and findings.
--- NOTE | 2017-03-19 12:38 | CARD ---
APPROVED REPORT EKG Measurement Heart [id number] <Conclusion> Sinus bradycardia Otherwise normal ECG
--- NOTE | 2017-03-19 19:01 | CP.PCM.DIS ---
Provider - Provider Date of Admission: 03/18/17 12:08 Attending physician: Eric Bansal MD Time Spent in preparation of Discharge (in minutes): 45 Hospital Course - Lab Results Lab Results: Most Recent Lab Values WBC 7.7 K/uL (4.8-10.8) 03/18/17 10:58 RBC 5.15 Mil/uL (4.40-5.90) 03/18/17 10:58 Hgb 15.8 g/dL (12.0-18.0) 03/18/17 10:58 Hct 45.7 % (35.0-51.0) 03/18/17 10:58 MCV 88.8 fL (80.0-94.0) 03/18/17 10:58 MCH 30.7 pg (27.0-31.0) 03/18/17 10:58 MCHC 34.6 g/dL (33.0-37.0) 03/18/17 10:58 RDW 13.4 % (11.5-14.5) 03/18/17 10:58 Plt Count 281 K/uL (130-400) 03/18/17 10:58 MPV 7.4 fL (7.2-11.7) 03/18/17 10:58 Neut % (Auto) 60.6 % (50.0-75.0) 03/18/17 10:58 Lymph % (Auto) 27.2 % (20.0-40.0) 03/18/17 10:58 [place] % (Auto) 9.3 % (0.0-10.0) 03/18/17 10:58 Eos % (Auto) 1.6 % (0.0-4.0) 03/18/17 10:58 Baso % (Auto) 1.3 % (0.0-2.0) 03/18/17 10:58 Neut # 4.7 K/uL (1.8-7.0) 03/18/17 10:58 Lymph # 2.1 K/uL (1.0-4.3) 03/18/17 10:58 [place] # 0.7 K/uL (0.0-0.8) 03/18/17 10:58 Eos # 0.1 K/uL (0.0-0.7) 03/18/17 10:58 Baso # 0.1 K/uL (0.0-0.2) 03/18/17 10:58 PT 13.0 SECONDS (9.7-12.2) H 03/18/17 10:58 INR 1.2 03/18/17 10:58 APTT 33 SECONDS (21-34) 03/18/17 10:58 Sodium 136 mmol/L (132-148) 03/18/17 10:58 Potassium 4.1 mmol/L (3.6-5.2) 03/18/17 10:58 Chloride 100 mmol/L (98-107) 03/18/17 10:58 Carbon Dioxide 30 mmol/L (22-30) 03/18/17 10:58 Anion Gap 10 (10-20) 03/18/17 10:58 BUN 13 mg/dL (9-20) 03/18/17 10:58 Creatinine 1.0 mg/dL (0.8-1.5) 03/18/17 10:58 Est GFR ( Amer) > 60 03/18/17 10:58 Est GFR (Non-Af Amer) > 60 03/18/17 10:58 Random Glucose 110 mg/dL (75-110) 03/18/17 10:58 Calcium 9.3 mg/dl (8.6-10.4) 03/18/17 10:58 Total Bilirubin 0.7 mg/dL (0.2-1.3) 03/18/17 10:58 AST 33 U/L (17-59) 03/18/17 10:58 ALT 30 U/L (21-72) 03/18/17 10:58 Alkaline Phosphatase 83 U/L (38-126) 03/18/17 10:58 Total Creatine Kinase 88 U/L (55-170) 03/19/17 01:14 CK-MB (Mass) 1.28 ng/mL (0.0-3.38) 03/19/17 01:14 Troponin I < 0.0120 ng/mL (0.00-0.120) 03/19/17 01:14 NT-Pro-B Natriuret Pep 108 pg/mL (0-900) 03/18/17 10:58 Total Protein 7.2 g/dL (6.3-8.3) 03/18/17 10:58 Albumin 4.0 g/dL (3.5-5.0) 03/18/17 10:58 Globulin 3.2 gm/dL (2.2-3.9) 03/18/17 10:58 Albumin/Globulin Ratio 1.3 (1.0-2.1) 03/18/17 10:58 - Hospital Course Hospital Course: Chief complaint: Chest pain History of present illness: 64-year-old male with history of hypertension, reflux disease, sciatica. Patient came to the emergency room with not feeling well. Comparing of shortness of breath. Pain also in the chest, radiating to the left upper extremity, almost 1 day duration. Patient recently hospitalized with similar symptoms. during the last admission pt got loop recorder but pt noncompliance Patient is a slower to respond Past medical history: Hypertension GERD and sciatica Allergy no known drug tablets Personal history: He is a smoker, continues to smoke 1 pack per day for many years, denies any alcohol Family history significant for hypertension and diabetes Surgical history none Review of system: Denies any headache, comparing of chest discomfort, shortness supple, and the dizziness. Rest of the review of system unclear On examination: Vital signs stable. 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 Labs reviewed Chest x-ray reviewed Clinical stable. Mild bradycardia noted. Assessment and recommendation: 66-year-old male with a history of hypertension reflux disease sciatica now admitted to the hospital with chest pain. Underlying CAD cannot be ruled out. Discuss with cardiology today. Patient will be followed up. cardiology eval Shortness of breath, likely COPD related. Advise him to quit smoking. We will follow the patient. After patient was hospitalized to patient did not have any shortness of breath. He was feeling better, he wanted to go home. He meanwhile underwent a CAT scan of the chest, showing no evidence of any infiltrates, no masslike lesions noted. Minimal emphysematous lung changes noted. Clinical stable. Patient has a link monitors Assessment and recommendation: 61 female with a history of hypertension and reflux disease sciatica chronic smoker and COPD. Admitted to the hospital with the sudden onset of shortness of breath and chest discomfort. Clinical patient is stable. No oxygen desaturation noted. Patient wanted to go home and he will be discharged home, follow up as an outpatient with immunochemist. Advised him to quit smoking. Will follow-up the patient Discharge Plan - Follow Up Plan Condition: STABLE Disposition: ELOPED FROM NURSING UNIT
== END 2017-03-19 11:18 | disposition left against medical advice (07) ==
LOC: C.ER 10:18 → C.9E 12:08 → C.6T 17:59
PROVIDERS: ADMIT Internal Medicine; ATTEND Internal Medicine
DX: R07.89 Other chest pain (principal); E11.9 Type 2 diabetes mellitus without complications; F03.90 Unspecified dementia, unspecified severity, without behavioral disturbance, psychotic disturbance, mood disturbance, and anxiety; F17.210 Nicotine dependence, cigarettes, uncomplicated; I10 Essential (primary) hypertension; J44.9 Chronic obstructive pulmonary disease, unspecified
CPT/HCPCS: 36415; 71045; 71250; 80053; 83880; 84484; 85025; 85610; 85730; 93005; 99285; G0378; J1644

== ENCOUNTER 2018-06-24 09:16 | Outpatient (CLI) | payer MEDICARE | END 2018-06-24 09:17 | disposition home or self-care (01) | LOC: C.CTH 09:17 | DX: Z12.2 Encounter for screening for malignant neoplasm of respiratory organs (principal) ==

== ENCOUNTER 2018-07-16 09:08 | Outpatient (CLI) | payer MEDICARE | END 2018-07-16 09:09 | disposition home or self-care (01) | LOC: C.MRIC 09:09 ==